=== PATIENT | male | born 1965 | race Two or more races ===

== ENCOUNTER → 2020-04-05 | Emergency (ER) | payer SELFPAY ==
[~2020-04-05] VITALS: Ht 180.3 cm; Wt 72.6 kg
[~2020-04-05] MED LIST: TETANUS-DIPTH-ACEL PERTUSSIS 0.5ML SYR Tdap IM ONE
[2020-04-05 11:19] VITALS: BP 149/101
[2020-04-05 11:36] LABS: Acetaminophen < 2.0 ug/mL (10-30); Salicylate 10.4 mg/dL (2.8-20.0)
== END | disposition home or self-care (01) ==
LOC: EDBD 10:46 → ER 10:46
DX: S50.811A Abrasion of right forearm, initial encounter (principal); F41.9 Anxiety disorder, unspecified; F12.10 Cannabis abuse, uncomplicated; X78.8XXA Intentional self-harm by other sharp object, initial encounter; Y93.89 Activity, other specified; Y92.89 Other specified places as the place of occurrence of the external cause; Y99.8 Other external cause status
CPT/HCPCS: 36415; 80320; 80329; 90471; 90715

== ENCOUNTER 2020-05-26 17:02 | Emergency (ER) | payer SELFPAY ==
[~2020-05-26] VITALS: Ht 188 cm; Wt 81.6 kg
[2020-05-26 17:25] VITALS: BP 201/122
== END 2020-05-26 20:45 | disposition left against medical advice (07) ==
LOC: ER 17:02
DX: K08.89 Other specified disorders of teeth and supporting structures (principal); Z53.21 Procedure and treatment not carried out due to patient leaving prior to being seen by health care provider

== ENCOUNTER 2020-05-27 22:04 | Emergency (ER) | payer SELFPAY ==
[~2020-05-27] VITALS: Ht 188 cm; Wt 83.9 kg
[2020-05-27 23:02] VITALS: BP 126/86
[2020-05-28] MEDS ORDERED: cefTRIAXone SOD 1,000 MG VL IM ONE (00:30)
== END 2020-05-28 00:58 | disposition home or self-care (01) ==
LOC: ER 22:10
DX: K04.7 Periapical abscess without sinus (principal); F12.10 Cannabis abuse, uncomplicated
CPT/HCPCS: 96372